=== PATIENT | female | born 1965 | race Caucasian/White ===

== ENCOUNTER 2017-01-28 07:23 | Emergency (ER) | payer OTHER ==
[~2017-01-28] VITALS: Ht 152.4 cm; Wt 99.0 kg
[~2017-01-28 07:23] MED LIST: ENAL2.5T36; HYDR25TA6
[2017-01-28 07:27] VITALS: Ht 152.4 cm; Wt 99.0 kg
[2017-01-28] MEDS ORDERED: NITR-58 PO (07:39)
[2017-01-28] MEDS ORDERED: PHEN-538 PO (07:39)
[2017-01-28 07:48] VITALS: BP 139/88; PULSE 78; RESP 21
--- NOTE | 2017-01-28 08:15 | ERD ---
ER Documentation Chief Complaint Date/Time DATE: 01/28/17 TIME: 08:14 Chief Complaint Urine problem x 2 days HPI Patient is a 51-year-old female with hypertension who says "I have a urine infection". She said her symptoms started yesterday and she says that she felt worse today. She has burning with urination. She has no fevers. She did not call her primary doctor as of yet. She has a history of urine infection in the past. She tried Azo. ROS All systems reviewed and are negative except as per history of present illness. Medications Home Meds Active Scripts Phenazopyridine Hcl* (Pyridium*) 200 Mg Tab, 200 MG PO TID Y for URINARY PAIN, # 6 TAB Prov:VIOLA EDGAR MD 01/28/17 Nitrofurantoin Monohyd Macrocr* (Macrobid*) 100 Mg Capsr, 100 MG PO BID for 14 Days, CAP Prov:VIOLA EDGAR MD 01/28/17 Reported Medications Hydrochlorothiazide (Hydrochlorothiazide) 25 Mg Tablet 08/03/09 Enalapril Maleate* (Vasotec*) 2.5 Mg Tablet 08/03/09 Allergies Allergies: Coded Allergies: No Known Allergies (Verified Allergy, Mild, 01/28/17) PMhx/Soc History of Surgery: No Hx Neurological Disorder: No Hx Respiratory Disorders: No Hx Cardiac Disorders: Yes (HTN) Hx Miscellaneous Medical Probl: No Hx Alcohol Use: No Hx Substance Use: No Hx Tobacco Use: No FmHx Family History: No diabetes Physical Exam Vitals Vital Signs Date Time Temp Pulse Resp B/P Pulse Ox O2 Delivery O2 Flow Rate FiO2 01/28/17 07:48 78 21 139/88 98 Room Air 01/28/17 07:27 98.3 82 20 139/67 95 Physical Exam Const: No acute distress Head: Atraumatic Eyes: Normal Conjunctiva ENT: Normal External Ears, Nose and Mouth. Neck: Full range of motion..~ No meningismus. Resp: Clear to auscultation bilaterally Cardio: Regular rate and rhythm, no murmurs Abd: Soft, non tender, non distended. Normal bowel sounds Skin: No petechiae or rashes Back: No midline or flank tenderness Ext: No cyanosis, or edema Neur: Awake and alert Psych: Normal Mood and Affect Procedures/MDM Patient is a 51-year-old female who presents with symptoms consistent with acute cystitis. I will treat her empirically with Macrobid and Pyridium. I doubt appendicitis or bowel obstruction or sepsis. I believe outpatient management is appropriate and the patient can follow-up with her primary doctor within 24-48 hours for reevaluation. She can return sooner for any worsening symptoms. Departure Diagnosis: Primary Impression: Cystitis Condition: Fair Patient Instructions: Cystitis Additional Instructions: Llame al doctor MAANA y justo desiree SPENCER PARA DENTRO DE 1-2 GUERRIER.Dgale a la secretaria que nosotros le instruimos hacer esta spencer.Avise o llame si vargas condicin se empeora antes de la spencer. Regresa aqui si peor o no mejor. VIOLA EDGAR MD Jan 28, 2017 08:15
== END 2017-01-28 08:37 | disposition home or self-care (01) ==
LOC: FTE 07:23
DX: N30.90 Cystitis, unspecified without hematuria (principal); I10 Essential (primary) hypertension
CPT/HCPCS: 99283